=== PATIENT | male | born 1970 | race Caucasian/White ===

== ENCOUNTER 2019-03-18 12:06 | Inpatient (IN) | payer MEDICAID ==
[~2019-03-18] VITALS: Ht 188 cm; Wt 190.5 kg
[~2019-03-18 12:06] MED LIST: ALD25 PO; BAY PO; CAR30 PO; COR6 PO; LASIX40 MG PO; ZES20 PO
[2019-03-18 12:09] VITALS: Ht 188 cm; Wt 190.5 kg
--- NOTE | 2019-03-18 12:18 | NUR ---
EKG IN PROGRESS. CHARGE NURSE IS GETTING ROOM AVAILABLE FOR PT.
--- NOTE | 2019-03-18 12:30 | NUR ---
MSE COMPLETED BY DR PACE. PT HERE FOR C/O INCR SOB IN THE PAST WEEK. PT ALSO STS "I'VE BEEN REALLY BLOATED.. THAT'S BEEN GOING ON IN THE PAST 6 MONTHS. IT'S PROBABLY MAKING ME SHORT OF BREATH." PT REPORTS AN EXTENSIVE HX OF CARDIAC PROBLEMS - AFIB, WI, AND PACEMAKER PLACEMENT. PT HAS PLEASANT AFFECT, CALM, COOPERATIVE. O2 SAT ON ROOM AIR IS 82% PT PLACED ON OXYGEN VIA NC AT THIS TIME
[2019-03-18 12:46] LABS: PLATELET COUNT 139 x10^3mcL (130-400)
[2019-03-18 12:50] LABS: RED CELL DISTRIBUTION WIDTH 17.1 % (11.5-14.5)
--- NOTE | 2019-03-18 13:00 | NUR ---
PT HR DEC TO 98 AT THIS TIME ON CM
[2019-03-18 13:05] LABS: CALCIUM 8.7 mg/dL (8.5-10.1); CARBON DIOXIDE 30.5 mmol/L (21-32); CHLORIDE SERUM 99 mmol/L (98-107); CREATININE SERUM 1.2 mg/dL (0.7-1.3); GFR1 > 60 mL/min; GLUCOSE SERUM 118 mg/dL (74-106); POTASSIUM SERUM 4.5 mmol/L (3.5-5.1); SODIUM SERUM 138 mmol/L (136-145)
[2019-03-18 13:09] LABS: ALBUMIN 3.9 g/dL (3.4-5.0); ALKALINE PHOSPHATASE 100 U/L (46-116); ALT/SGPT 24 U/L (16-63); AST/SGOT 27 U/L (15-37); BILIRUBIN TOTAL 1.2 mg/dL (0.20-1.00); HDL CHOLESTEROL 38 mg/dL (40-60); LIPASE 346 IU/L (73-393); TOTAL PROTEIN, SERUM 8.2 g/dL (6.4-8.2); TRIGLYCERIDES 72 mg/dL (<150)
[2019-03-18 13:11] LABS: CHOLESTEROL 130 mg/dL (<200); CHOLESTEROL/HDL RATIO 3.4
[2019-03-18 13:15] LABS: T3 TOTAL 0.83 ng/mL
[2019-03-18 13:17] LABS: FREE T4 1.97 ng/dL (0.76-1.46); FREE THYROXINE INDEX 3.2 ug/dL (1.4-4.5); T4(THYROXINE) 8.9 ug/dL (4.7-13.3)
[2019-03-18] MEDS ORDERED: ELIQUIS2.5 MG (14:29)
[2019-03-18] MEDS ORDERED: BENAZEPRIL HYDR40 M1 (14:29)
[2019-03-18 14:30] LABS: microscopic required? NO
[2019-03-18] MEDS ORDERED: FUROSEMIDE5 GM (14:30)
[2019-03-18] MEDS ORDERED: PACERONE200 MG (14:30)
--- NOTE | 2019-03-18 14:30 | NUR ---
PT USED URINAL TO BEDSIDE TO PROVIDE URINE SAMPLE
--- NOTE | 2019-03-18 14:42 | NUR ---
REPORT GIVEN TO EL BOBBY
--- NOTE | 2019-03-18 14:57 | NUR ---
REPORT TO ERIC BOBBY.
[2019-03-18 15:09] LABS: urine erythrocyte NEGATIVE (NEGATIVE)
--- NOTE | 2019-03-18 15:28 | NUR ---
PT SITTING ON EDGE OF BED IN POSITION OF COMFORT. PT AWAKE AND ALERT. BREATHING EVEN UNLABORED. NO DISTRESS.
--- NOTE | 2019-03-18 16:10 | NUR ---
RECEIVED PT VIA DS IndustriesERNEY FROM E/D, ACCOMPANIED BY RN AND TRANSPORTER. PT A/A/O X 4, CALM, COOPERATIVE; WEARS GLASSES (W/ PT). AMBULATORY, NO GAIT OR BALANCE IMPAIRMENT NOTED. ON TELE # 28, HR 86, AFIB + VENTRICULAR RHYTHM + PVC'S, DENIES CHEST PAIN OR DISCOMFORT AT THIS TIME; PM BY [facility], INSTALLED 2015. HAYLEY RADIAL AND PEDAL PULSES PRESENT, ANASARCA, CAP REFILL < 3 SECS, SCD BY BEDSIDE. LUNGS DIMINISHED BILATERALLY, CHEST RISING EVENLY, 3LNC, 92%, DESATURATES DOWN TO 85% ON R/A, NO ACUTE RESPIRATORY DISTRESS NOTED. ABD FIRM, DISTENDED, NORMOACTIVE BOWEL SOUNDS X 4 QUADS, LAST BM 03/18/19, FORMED. C/O DARK, CONCENTRATED URINE, W/ FOUL SMELL. IV SITE RFA 20G, CDI. ORIENTED PT TO ROOM, BED CONTROLS, CALL LIGHT SYSTEM. SIDE RAILS UP X 2, BED IN LOW POSITION. WILL ENDORSE TO KANU REYES.
[2019-03-18 17:00] VITALS: BP 126/88
--- NOTE | 2019-03-18 17:07 | NUR ---
ULTRASOUND AT BEDSIDE TO COMPLETE ABD COMPLETE US. ALL NEEDS ATTENDED TO. WILL CONTINUE TO MONITOR
--- NOTE | 2019-03-18 17:30 | NUR ---
DR GABRIEL AWARE PATIENT RHYTHM AFIB WITH VENTRICULAR RHYTHM WELL PATIENT HAS A PACEMAKER WHICH HAS NEVER BEEN INTERROGATED. AWAITING DR GABRIEL TO CONSULT WITH DR ESPAÑA REGARDING PATIENT. WILL PROCEED ORDERED. ALL NEEDS ATTENDED TO. WILL CONTINUE TO MONITOR
--- NOTE | 2019-03-18 18:10 | NUR ---
RECEIVED ORDERS TO INTERROGATE PATIENTS PACEMAKER AT THIS TIME. ULTRASOUND AT BEDSIDE FINISHING UP ABD COMPLETE AND [place] OF BILATERAL LOWER EXTREMITIES. PATIENT REQUESTING TO EAT HIS DINNER BEFORE PACEMAKER BEING INTERROGATED. WILL WAIT UNTIL PATIENT FINISHES HIS DINNER. ALL NEEDS ATTENDED TO. WILL CONTINUE TO MONITOR
--- NOTE | 2019-03-18 19:00 | NUR ---
TRIED TO INTERROGATE PATIENT PACEMAKER AT THIS TIME. PER PATIENT HE GOT HIS PACEMAKER AT [facility]. TRIED TO INTERROGATE WITH [facility] INTERROGATOR. ERROR IN FINDING PACEMAKER. CALLED [facility] INTERROGATOR TECHNICAL SUPPORT AT THIS TIME AND THEY WERE UNABLE TO FIND INFORMATION ON PATIENT. PATIENT THEN PROVIDED PACEMAKER CARD AND REVEALED PACEMAKER IS FROM [facility]. NEED TO CALL [employer] PACEMAKER TO COME AND INTERROGATE PACEMAKER. WILL ENDORSE TO CLINICAL ASSISTANT PROFESSOR NURSE.
--- NOTE | 2019-03-18 19:19 | NUR ---
PATIENT RESTING COMFORTABLY SITTING ON SIDE OF THE BED AT THIS TIME. NO APPARENT DISTRESS OR DISCOMFORT NOTED. 3L NC IN PLACE AND PATIENT TOLERATING WELL. IV PATENT AND INTACT. ALL QUESTIONS AND CONCERNS ADDRESSED. ALL NEEDS ATTENDED TO. SAFETY PRECAUTIONS MAINTAINED. WILL ENDORSE ALL CARE TO BULLET LUBRICANT MIXER NURSE
--- NOTE | 2019-03-18 19:25 | NUR ---
PT SITTING UP AT BEDSIDE TABLE, AOX4, DENIES DIZZINESS, MINIMAL ROSE. PT HAD NITRO PATCH TO LEFT UPPER CHEST, EDUCATED PT IN REGARDS TO S/E OF NITRO, PT REPORTS HE WILL INFORM STAFF IF MEDICATION FOR ROSE IS NEEDED. TELE # 28, A FIB W/ PVC'S, DENIES CP. PT ON ELIQUIS. PULSES PALPABLE BILAT, DENIES NUMBNESS/TINGLING IN FEET. PT REPORTS 3+ PITTING EDEMA BLE, GENERALIZED EDEMA NOTED. PT ON LASIX. EDUCATED PT IN REGARDS TO S/E OF LASIX (LIGHTHEADEDNESS/DIZZINESS UPON STANDING). RESP EVEN AND UNLABORED ON 3LNC, DENIES SOB. ABD ROUND, OBESE PT, DENIES N/V/D. EDUCATED PT IN REGARDS TO DM DIET, EXERCISE. IV SITE TO THE RFA PATENT, SALINE LOCKED AT THIS TIME. ALL COMFORT AND SAFETY MEASURES PROVIDED FOR, CALL LIGHT WITHIN REACH, BED IN LOWEST POSITION, WILL CONTINUE TO MONITOR.
[2019-03-18 20:56] VITALS: BP 111/69
[2019-03-19 01:50] LABS: AMPHETAMINE QUAL UR NONE DETECTED (See below)
[2019-03-19 04:57] VITALS: BP 101/70
--- NOTE | 2019-03-19 04:58 | NUR ---
PT RESTED IN INTERVALS DURING SHIFT, NO ACUTE CHNAGES OCCURRING OVERNIGHT. PT REMAINS ON 3LNC, WILL ATTEMPT TO WEAN OFF. PT BP REMAINS STABLE. PT DENIES CP DURING SHIFT. PT IV SITE REMAINS PATENT RFA. NO REDNESS, SWELLING OR PAIN NOTED. ALL COMFORT AND SAFETY MEASURES PROVIDED FOR, CALL LIGHT WITHIN REACH, BED IN LOWEST POSITION, WILL CONTINUE TO MONITOR.
[2019-03-19 07:08] LABS: BASOPHIL % 1.2 % (0-2); PLATELET COUNT 138 x10^3mcL (130-400)
[2019-03-19 07:20] LABS: CALCIUM 8.6 mg/dL (8.5-10.1); CARBON DIOXIDE 35.5 mmol/L (21-32); CREATININE SERUM 1.4 mg/dL (0.7-1.3); MAGNESIUM 1.9 mg/dL (1.8-2.4); PHOSPHOROUS 5.4 mg/dL (2.5-4.9); POTASSIUM SERUM 4.4 mmol/L (3.5-5.1)
--- NOTE | 2019-03-19 07:25 | NUR ---
RECEIVED PATIENT AWAKE/ALERT IN BED NO DISTRESS NOTED, DENIES PAIN AT THIS TIME. ON O2. TELE #28 AFIB W/ HR 102, IV TO RFA INTACT AND SL NOTED. IDENTITY MANAGEMENT DEVELOPER AT BEDSIDE ASKING PATIENT QUESTIONS REGARD HEALTH HX. CALL LIGHT WITHIN REACH.
--- NOTE | 2019-03-19 09:17 | NUR ---
PATIENT SAT UP AT SIDE OF BED, NO COMPLAIN OF PAIN. STATE FEEL BETTER COMPARE TO YESTERDAY; ALL MEDS ADMINISTERED EXCEPT ELIQUIS WAITING FOR PHARMACY TO BRING IT. NEEDS MET. CALL LIGHT WITHIN REACH.
[2019-03-19 09:42] VITALS: BP 133/84
--- NOTE | 2019-03-19 10:02 | NUR ---
PATIENT SAT UP AT SIDE OF BED, [facility] AT BEDSIDE TO PERFORM DEVICE INTERROGRATE. ELIQUIS PO ADMINISTERED. CONT TO MONITOR.
--- NOTE | 2019-03-19 10:36 | NUR ---
PER SAMUEL KNAPP FROM [facility] REPORT PATIENT HAS CHRONIC AFIB; NO HIGH VENTRICULAR RATE EPISODES NOTED.
--- NOTE | 2019-03-19 11:02 | NUR ---
DR. WHITE SEEN PATIENT AT THIS TIME, PATIENT RESTING IN BED. DISCUSS POC WITH PATIENT. TECH AT BEDSIDE PREPARE TO PERFORM ECHO. CONT CURRENT TX AND CARDIO WORKUP PER DR. WHITE.
--- NOTE | 2019-03-19 12:04 | NUR ---
PATIENT SAT AT SIDE OF THE BED, NO COMPLAIN. METOPROLOL PO GIVEN. HR 88 CONT TO MONITOR.
--- NOTE | 2019-03-19 13:00 | NUR ---
STONE SPREADER OPERATOR CALL INFORM RN PATIENT HAS 33 BEATS RUN PVC, CHECK ON PATIENT SAT AT SIDE OF BED WITH VISITOR, ASYMPTOMATIC. CONT TO MONITOR
[2019-03-19 13:30] VITALS: BP 164/45
--- NOTE | 2019-03-19 15:24 | NUR ---
PATIENT SAT UP AT SIDE OF BED, NO COMPLAIIN. REPORT NO CHEST PAIN. NEEDS MET. CONT TO MONITOR.
[2019-03-19 16:41] VITALS: BP 106/59
--- NOTE | 2019-03-19 16:42 | NUR ---
PATIENT RESTING IN BED DENIES CHEST PAIN, DENIES SOB. BS 99 NO COVERAGE NEEDED. LASIX 40MG PO GIVEN ORDERED. TELE SR W/ PVC HR 76 CONT TO MONITOR.
--- NOTE | 2019-03-19 18:37 | NUR ---
PATIENT RESTING IN BED NO COMPLAINS. NEEDS ANTICIPATED. CALL LIGHT WITHIN REACH.
--- NOTE | 2019-03-19 19:30 | NUR ---
RECEIVED PT FROM DAY SHIFT RN. PT AAOX4. DENIES ROSE/DIZZINESS. BREATHING EVEN AND UNLABORED, PT ON 2L/MIN NC. NO SOB NOTED. TELE #28 AFIB, HR 76. PT HAS PACEMAKER. DENIES CHEST PAIN/PRESSURE. IV RFA PATENT. PT AMBULATORY WITH BRP. PT AWARE ON FLUID RESTRICTIONS. NO SIGNS OF DISTRESS. CALL BUTTON WITHIN REACH. SAFETY PRECAUTIONS IN PLACE. WILL CONTINUE TO MONITOR.
[2019-03-19 21:00] VITALS: BP 106/72
--- NOTE | 2019-03-20 00:38 | NUR ---
PT RESTING. BREATHING EVEN AND UNLABORED. NO SIGNS OF DISTRESS NOTED. CALL BUTTON WITHIN REACH. WILL CONTINUE TO MONITOR.
--- NOTE | 2019-03-20 03:45 | NUR ---
PT AWAKE DENIES ANY PAIN. NO SIGNS OF DISTRESS. CALL BUTTON WITHIN REACH. SAFETY PRECAUTIONS IN PLACE. WILL CONTINUE TO MONITOR.
--- NOTE | 2019-03-20 05:11 | NUR ---
PT SLEPT MOST OF THE NIGHT WITH NO SIGNS OF DISTRESS. BREATHING EVEN AND UNLABORED WITH NO SOB NOTED. NC AT 4L/MIN. RT PROTOCOL. PT AMBULATORY WITH BRP. PT DENIES ANY PAIN. PT MEDICATED PER EMAR. NO SIGNS OF DISTRESS. CALL BUTTON WITHIN REACH. WILL CONTINUE TO MONITOR AND ENDORSE CARE TO DAY SHIFT RN.
[2019-03-20 06:01] VITALS: BP 109/72
--- NOTE | 2019-03-20 06:30 | NUR ---
PT WAS ON NC 2L/MIN LAST NIGHT WITH O2SAT 90%. PLACED PT AT 3L/MIN WTIH O2SAT AT 94%. DR CORNEJO MADE AWARE AND PLACE PT ON RT PROTOCOL. RT EVALUATED PT AND PLACED PT NC 4L/MIN. DR MERAZ MADE AWARE PT RT PROTOCOL WAS CANCELLED THIS AM. AWAITING NEW ORDER.
[2019-03-20 06:58] LABS: BASOPHIL % 0.8 % (0-2); PLATELET COUNT 130 x10^3mcL (130-400)
[2019-03-20 07:09] LABS: CALCIUM 8.4 mg/dL (8.5-10.1); CARBON DIOXIDE 37.8 mmol/L (21-32); CREATININE SERUM 1.5 mg/dL (0.7-1.3); MAGNESIUM 1.9 mg/dL (1.8-2.4); PHOSPHOROUS 5.4 mg/dL (2.5-4.9); POTASSIUM SERUM 4.8 mmol/L (3.5-5.1)
[2019-03-20 07:17] LABS: RED CELL DISTRIBUTION WIDTH 16.8 % (11.5-14.5)
--- NOTE | 2019-03-20 07:43 | NUR ---
PT RESTING. NO SIGNS OF DISTRESS NOTED. ENDORSED CARE TO DAY SHIFT RN, ALL QUESTIONS ADDRESSED.
[2019-03-20 08:11] VITALS: BP 110/74
--- NOTE | 2019-03-20 08:14 | NUR ---
RECEIVED PATIENT FROM KANU ORTEGA. PATIENT SEATED UPRIGHT, EATING BREAKFAST TRAY. NO COMPLAINTS OF SOB OR PAIN. SPOKE WITH PATIENT ABOUT PLAN OF CARE TODAY AND PATIENT AGREES. PATIENT ALSO AWARE AND COMPLIANT WITH FLUID RESTRICTION. WILL AWAIT FOR CARE TEAM TO SPEAK WITH PATIENT ABOUT PLAN. CALL LIGHT IN REACH.
--- NOTE | 2019-03-20 10:40 | NUR ---
DR WHITE AND DR TRUONG IN TO SPEAK WITH PATIENT. STATED PATIENT LIKELY TO BE DISCHARGED TOMORROW ONCE INSURANCE COVERAGE OF PO ELIQUIS APPROVED, WELL WEAN OFF O2. PATIENT VERBALIZES UNDERSTANDING AND AGREES. WILL CONTINUE TO MONITOR O2 SAT. CALL LIGHT IN REACH.
--- NOTE | 2019-03-20 12:06 | NUR ---
PATIENT WEANED TO 2 LPM O2 VIA NC W O2 SATURATION OF 92%. PATIENT CURRENTLY SEATED AT BEDSIDE USING CELL PHONE. DENIES SOB, NO S/S OF RESPIRATORY DISTRESS. ENCOURAGED PATIENT TO AMBULATE AND PATIENT AGREES. WILL CONTINUE TO MONITOR AND WEAN TO ROOM AIR PER DR WHITE & DR TRUONG. CHARGE NURSE JESSICA MADE AWARE. CALL LIGHT IN REACH.
[2019-03-20 12:46] VITALS: BP 102/49
--- NOTE | 2019-03-20 15:50 | NUR ---
PATIENT SEATED AT BEDSIDE. NO COMPLAINTS OF SOB. PATIENT ON ROOM AIR W SAT OF 89-90%. CHARGE NURSE JESSICA MADE AWARE, CALLED DR TRUONG AND MADE AWARE. DR TRUONG ORDERED IS AND 1 LPM IF NEEDED. IS INSTRUCTIONS PRINTED AND GIVEN TO PATIENT. INSTRUCTED ON IS USE AND REPEAT DEMONSTRATION ACHIEVED. CALL LIGHT IN REACH, WILL CONTINUE TO MONITOR.
[2019-03-20 16:56] VITALS: BP 111/58
--- NOTE | 2019-03-20 18:43 | NUR ---
PATIENT SEATED UP TO CHAIR. NO COMPLAINTS OF SOB OR SIGNS OF RESPIRATORY DISTRESS. PATIENT STATES HE IS USING IS. ENCOURAGED AMBULATION, PATIENT STATES HE HAS BEEN UP TO BR BUT NOT OBSERVED IN HALLWAY. WILL ENDORSE TO ONCOMING NURSE. CALL LIGHT IN REACH.
--- NOTE | 2019-03-20 19:10 | NUR ---
RECEIVED PT SITTING UP IN BED WITH HOB ELEVATED AT APPROX 70 DEGREES, NO ACUTE DISTRESS OBSERVED, DENIES PAIN OR DISCOMFORT AT THIS TIME. AFIB TO TELE #28, DENIES CP OR PRESSURE, HR 82, [facility] TRANSVENOUS PACEMAKER IN PLACE TO L UPPER CHEST WALL, INTERROGATED EARLIER TODAY WITH NO DEFICITS NOTED. PULSES PRESENT AND EQUAL THROUGHOUT, NON PITTING EDEMA TO BLE. AA/OX4, ABLE TO MAKE NEEDS KNOWN, SPEECH CLEAR AND APPROPRIATE. BREATHING ON RA, EVEN AND UNLABORED, DENIES SOB OR DYSPNEA, O2 SAT 92% LUNGS DIM B/L. ABD ROUND AND SOFT WITH ACTIVE BOWEL SOUNDS, NO N/V/D. FREELY VOIDS URINE WITH BRP. AMBULATORY AND ABLE TO REPOSITION SELF IN BED. IV TO RFA IN PLACE, DRY, PATENT, INTACT, S/L AT THIS TIME. NO PAIN, REDNESS OR SWELLING WHEN FLUSHED WITH NS. COMFORT AND SAFETY MEASURES IN PLACE. ALL NEEDS ASSESSED AND ATTENDED TO. CALL LIGHT WITHIN REACH. WILL CONTINUE TO MONITOR
--- NOTE | 2019-03-20 19:10 | NUR ---
RECEIVED PT LAYING IN BED, NO ACUTE DISTRESS OBSERVED, DENIES PAIN OR DISCOMFORT AT THIS TIME. AFIB TO TELE #28, DENIES CP OR PRESSURE, HR 82, BIOMETRIC TRANSVENOUS PACEMAKER IN PLACE TO L UPPER CHEST WALL, INTERROGATED EARLIER TODAY WITH NO DEFICITS NOTED. PULSES PRESENT AND EQUAL THROUGHOUT, NON PITTING EDEMA TO BLE. AA/OX4, ABLE TO MAKE NEEDS KNOWN, SPEECH CLEAR AND APPROPRIATE. BREATHING ON RA, EVEN AND UNLABORED, DENIES SOB OR DYSPNEA, O2 SAT 92% LUNGS DIM B/L. ABD ROUND AND SOFT WITH ACTIVE BOWEL SOUNDS, NO N/V/D. FREELY VOIDS URINE WITH BRP. AMBULATORY AND ABLE TO REPOSITION SELF IN BED. IV TO RFA IN PLACE, DRY, PATENT, INTACT, S/L AT THIS TIME. NO PAIN, REDNESS OR SWELLING WHEN FLUSHED WITH NS. COMFORT AND SAFETY MEASURES IN PLACE. ALL NEEDS ASSESSED AND ATTENDED TO. CALL LIGHT WITHIN REACH. WILL CONTINUE TO MONITOR
[2019-03-20 21:13] VITALS: BP 132/76
[2019-03-21 05:58] VITALS: BP 105/67
[2019-03-21 06:50] LABS: CALCIUM 8.9 mg/dL (8.5-10.1); CARBON DIOXIDE 36.2 mmol/L (21-32); CREATININE SERUM 1.6 mg/dL (0.7-1.3); POTASSIUM SERUM 4.6 mmol/L (3.5-5.1)
[2019-03-21 07:23] LABS: PLATELET COUNT 129 x10^3mcL (130-400); RED CELL DISTRIBUTION WIDTH 17.1 % (11.5-14.5)
--- NOTE | 2019-03-21 07:30 | NUR ---
RECEIVED PT SITTING UP ON A CHAIR. NO ACUTE DISTRESS. AAOX4. BREATHING EVEN AND UNLABORED ON RA. IV TO RFA, NO REDNESS OR SWELLING. DENIES CP OR PRESSURE. GIVEN ICE CHIPS REQUESTED. CALL LIGHT WITHIN REACH. WILL CONTINUE TO MONITOR.
[2019-03-21 07:49] VITALS: BP 115/78
--- NOTE | 2019-03-21 08:54 | NUR ---
RESPIRATORY-RECEIVED ORDER TO AMBULATE PT, WENT INTO PT ROOM, ASKED PT TO STAND AND PT WAS 80% ON ROOM AIR. RT DID NOT FEEL COMFORTABLE WALKING PT DUE TO LOW O2 LEVELS. PT PLACED ON 2LPM NASAL CANNULA-91%, RN AWARE, PT IS RESTING COMFORTABLY AFTER RT LEFT ROOM.
[2019-03-21] MEDS ORDERED: ELIQUIS5 M1 PO (09:32)
--- NOTE | 2019-03-21 10:11 | NUR ---
PT'S O2 SAT AT REST=92%. AMBULATED WITH PT IN THE HALLWAYS, O2 SAT DECREASED TO 82%. PT IMMEDIATELY PLACED ON 2L O2 VIA NC. O2 SAT INCREASED TO 93%. PT NOW BACK IN HIS ROOM SITTING UP ON THE SIDE OF THE BED. REPORTED FEELING SOB WHEN AMBULATING. ALAINA SAM AWARE. WILL CONTINUE TO MONITOR.
--- NOTE | 2019-03-21 12:16 | NUR ---
PT RESTING IN BED WATCHING TV. NO ACUTE DISTRESS. RESP EVEN AND UNLABORED ON 2L O2 VIA NC AT REST. HOB ELEVATED. IV TO RFA, NO REDNESS OR SWELLING NOTED. CALL LIGHT WITHIN REACH. WILL CONTINUE TO MONITOR.
[2019-03-21 12:39] VITALS: BP 106/50
--- NOTE | 2019-03-21 13:50 | NUR ---
CALLED AND SPOKE TO COSMO(N.P.) & MADE HER AWARE OF (SOCIAL MEDIA CONTENT SPECIALIST) NOTE. NEW ORDER RECEIVED ABG. MICHELE BOBBY ASSIGNED TO THIS PT MADE AWARE OF ABOVE.
[2019-03-21 16:13] VITALS: BP 98/67
--- NOTE | 2019-03-21 16:26 | NUR ---
PT GIVEN TOWELS AND NEW GOWN REQUESTED. NEW BLANKET ALSO GIVEN. PT SHOWERING AT THIS TIME. NO ACUTE DISTRESS. WILL CONTINUE TO MONITOR.
--- NOTE | 2019-03-21 16:38 | NUR ---
CALLED AND SPOKE TO (LEATHER POLISHER) AND MADE HIM AWARE OF ABG RESULT, NO NEW ORDERS RECEIVED AND JUST SAYS TO CONTINUE PT OXYGEN AT 2L/NC AND HE ALSO SAID THAT NO NEED FOR BIPAP AT THIS TIME. COSMO(N.P.) MADE AWARE OF ABOVE. MICHELE BOBBY ASSIGNED TO THIS PT MADE AWARE OF ABOVE. WILL CONT TO MONITOR.
--- NOTE | 2019-03-21 18:29 | NUR ---
PT RESTING IN BED WATCHING TV. NO ACUTE DISTRESS. AAOX4. RESP EVEN AND UNLABORED ON 2L O2 VIA NC. HOB ELEVATED. IV TO RFA, NO REDNESS OR SWELLING TO IV SITE. BED IN LOW POSITION, CALL LIGHT WITHIN REACH. WILL ENDORSE TO ONCOMING SHIFT.
--- NOTE | 2019-03-21 19:32 | NUR ---
AWAKE AND ALERT, ORIENTED TO NAME, PLACE, TIME AND SITUATION. HOB ELEVATED 50 DEG. BREATHING EVEN AND UNLABORED ON 2LPM OF O2 VIA NC. PER REPORT FROM DAY SHIFT NURSE, DESATS WHEN OFF OXYGEN AND AMBULATED. ABLE TO COMPLETE SENTENCES WITHOUT DIFFICULTY AT THIS TIME. AFIB ON TELE. NO PACING NOTED AT THIS TIME. DENIES HAVING PAIN. SALINE LOCK TO RIGHT FOREARM, FREE FROM ERYTHEMA OR SWELLING. NOTED EDEMA TO BLE, ELEVATED ON PILLOWS. CALL LIGHT WITHIN EASY REACH.
[2019-03-21 20:22] VITALS: BP 106/55
--- NOTE | 2019-03-21 20:26 | NUR ---
WATCHING TV AT THIS TIME. FEET ELEVATED ON PILLOW.
--- NOTE | 2019-03-21 21:22 | NUR ---
EYES CLOSED, HOB KEPT ELEVATED 45 DEG. ON 2LPM OF O2 VIA NC. BREATHING UNLABORED. CALL LIGHT WITHIN EASY REACH.
--- NOTE | 2019-03-22 00:02 | NUR ---
EYES CLOSED, BREATHING EVEN AND UNLABORED ON 2LPM OF O2 VIA NC. HOB KEPT ELEVATED 45 DEG. CALL LIGHT WITHIN EASY REACH.
--- NOTE | 2019-03-22 02:13 | NUR ---
SITTING ON SIDE OF BED. BREATHING UNLABORED. ON 2LPM OF O2 VIA NC.
[2019-03-22 05:35] VITALS: BP 109/64
[2019-03-22 06:06] LABS: BASOPHIL % 1.4 % (0-2)
--- NOTE | 2019-03-22 06:08 | NUR ---
AWAKE AND ALERT, SITTING ON SIDE OF BED. ON 2LPM OF O2 VIA NC. BREATHING EVEN AND UNLABORED. AMBULATED TO RESTROOM.
[2019-03-22 06:20] LABS: PLATELET COUNT 121 x10^3mcL (130-400); RED CELL DISTRIBUTION WIDTH 16.8 % (11.5-14.5)
[2019-03-22 06:24] LABS: CALCIUM 8.5 mg/dL (8.5-10.1); CARBON DIOXIDE 35.2 mmol/L (21-32); CREATININE SERUM 1.5 mg/dL (0.7-1.3)
--- NOTE | 2019-03-22 07:14 | NUR ---
AWAKE AND ALERT, BREATHING EVEN AND UNLABORED ON 2LPM OF O2 VIA NC. SITTING ON BED. ENDORSED TO NURSE HAN
--- NOTE | 2019-03-22 08:00 | NUR ---
SHIFT ASSESSMENT DONE. PATIENT A/A/OX4; CLEAR SPEECH. PACE MAKER TO L UPPER CHEST WALL. INTEROGATTED ON 03/19. TELE#28; A FIB W/ PVC'S; HR = 70'S. DENIED CHEST PAIN NOW. SITTING ON SIDE OF BED. NO SOB ON 2L VIA N/C; O2 SAT 95%. BREATHING SOUND CLEAR HAYLEY, BUT DIMINISHED HAYLEY BASES. HAYLEY LEGS EDEMA 2+, WITH BROWN DISCOLORATION. PULSES PALPABLE. IVHL'D TO RFA. HUGH REYES. [facility] DIET BREAKFSAT. CALL LIGHT IN REACH.
[2019-03-22 08:47] VITALS: BP 109/65
[2019-03-22 13:43] VITALS: BP 95/52
[2019-03-22 14:30] VITALS: BP 95/52
[2019-03-22 17:36] VITALS: BP 103/72
--- NOTE | 2019-03-22 18:26 | NUR ---
CONDITION STABLE. O2 SAT 93% ON ON 2L VIA N/C. VOID LARGE AMOUNT URINE VIA BRP X3, AFTER LASIX GIVEN. HAD BM X1. ENDORSED CARE TO NOC NURSE.
--- NOTE | 2019-03-22 19:55 | NUR ---
PT RECIEVED AAO REG RESP NO SOB ON 2L,CLEAR IN ALL [place],PT SITTING UP ON THE BED,KEPT CLEAN AND DRY TO TOUCH,NADE COMFORTABLE IN BED AND WILL CONTINUE TO MONITOR,CALL LIGHT EASY REACHED AND WILL CONTINUE TO MONITOR.
[2019-03-22 20:53] VITALS: BP 97/68
--- NOTE | 2019-03-23 02:14 | NUR ---
PT RESTING AT THIS TIME,WILL CONTINUE TO MONITOR.
[2019-03-23 05:36] VITALS: BP 99/61
--- NOTE | 2019-03-23 06:35 | NUR ---
PT HAD A RESTING NIGHT NO CHANGE AT THIS TIME,KEPT CLEAN AND DRY TO TOUCH AND WILL CONTINUE TO MONITOR.
--- NOTE | 2019-03-23 07:32 | NUR ---
RECIEVED PT SITTING UP IN CHAIR WITH NO C/O PAIN, DISTRESS, OR SOB. A/O X4, WITH NO ROSE OR DIZZINESS. 2LPM O2 NC CONNECTED TO PT. SALINE LOCK TO RFA INTACT AND PATENT WITH NO REDNESS. SAFETY PRECAUTIONS IN PLACE, CALL LIGHT WITHIN REACH, WILL MONITOR.
[2019-03-23 09:00] VITALS: BP 101/59
--- NOTE | 2019-03-23 10:41 | NUR ---
PT STABLE AT THIS TIME WITH NO C/O PAIN, DISTRESS, OR SOB. SAFETY PRECAUTIONS IN PLACE, CALL LIGHT WITHIN REACH, WILL MONITOR.
--- NOTE | 2019-03-23 11:07 | NUR ---
1. Recommend continuing CCHO, cardiac diet. 2. Diabetes diet education provided.
--- NOTE | 2019-03-23 11:07 | NUR ---
Initial Nutrition Assessment: 222T/B ALEXANDER SALAZAR MR Dx: A fib w/ rapid ventricular response PMHx: hypertension, paroxysmal AFib, MO, CHF, cardiac arrest, s/p pacemaker 4 years ago PSHx: pacemaker Labs: BUN 29H, CREAT 1.5H, (03/18) A1C 6.3H Meds: Colace, D 50%, humulin, Lasix, zofran Diet: CCHO, cardiac PO Intake: (03/22) lunch, breakfast 100%, (03/21) lunch, breakfast 100%, (03/20) 100% all meals Ht: 187.96 cm (74") Wt: 190.5 kg (419#) BMI: 53.9 kg/m2 (morbid obesity) Bed scale: 419# IBW: 190# (86 kg) %IBW: 220 UBW: 345# (1.5 years ago) Age: 48/M Food Allergies: NKFA Skin: intact Parish: 21 Edema: +2 BLE GI: Last BM: 03/22 Per H&P, Pt is a 48-year-old male with a history of hypertension, paroxysmal AFib, MO, CHF on Amiodarone, cardiac arrest, s/p pacemaker presenting with gradual onset of worsening shortness of breath in the last one week. RDN Visit (03/23): Patient was alert and oriented and said that he ate all of his breakfast this morning. Patient was given Diabetic diet education and tips for weight loss. Patient said that he has been gaining weight also due to fluid retention 2/2 CHF. Patient is to be D/C today, per bed huddles. Problem with: N/V/D/C: nuld constipation, on stool softeners Problems with: Chewing/Swallowing: none Current appetite: good Recent wt change: no recent change, gradual weight gain over 1.5 years %wt change: n/a Vitamin/Supplement use: none Special diet at home: regular Physical activity: walking Nutrition education given: Diabetes diet education was provided using [facility] handout on 'Type 2 Diabetes Nutrition Therapy'. Concepts like avoiding sugary drinks, and portion control were discussed. Patient verbalized understanding and did not have any questions at this time. Food-drug interactions: Colace- high fiber w/0482-3625 ml fluids Education given: yes Estimated Nutritional Needs Based on ideal body weight 86 kg Energy: 5716-5734 kcal/d (25-30 kcal/kg) Protein: 86-103 g/d (1.0-1.2 g/kg) - preserve LBM Fluid: per doctor Nutrition Diagnosis 1. Morbid obesity related to increased energy intake as evidenced by BMI 53.9 kg/m2. 2. Limited food adherence related to food and nutrition related knowledge deficit as evidenced by patient not following diabetic, low calorie diet. Intervention 1. Recommend continuing CCHO, cardiac diet. 2. Diabetes diet education provided. Monitor/Evaluate Goal: PO intake at least 75% of estimated needs Monitor: PO intake, Labs, GI function F/U in 7 days as low risk 03/30
[2019-03-23] MEDS ORDERED: CARVEDILOL12.5 M1 PO (12:15)
[2019-03-23 13:58] VITALS: BP 116/75
--- NOTE | 2019-03-23 14:21 | NUR ---
PT SITTING UP IN BED WITH NO C/O PAIN, DISTRESS, OR SOB. DISCHARGEE ORDER IN, JUST WAITING FOR APRIA TO BRING PT OXYGEN. SAFETY PRECAUTIONS IN PLACE, CALL LIGHT WITHIN REACH, WILL MONITOR.
[2019-03-23 14:51] VITALS: BP 116/75
--- NOTE | 2019-03-23 15:51 | NUR ---
PT STABLE TO DISCHARGE PER MD ORDER. VS WNL, NO DISTRESS OR PAIN NOTED. TOLERATED ALL CARES WELL. ERIN DROPPED OF OXYGEN AT 1530. ALL DISCHARGE FORMS SIGNED BY PT. ALL DISCHARGE EDUCATION, INSTRUCTIONS, AND PERSCRIPTIONS WERE GIVEN TO PT AND HE VERBALIZES UNDERSTANDING. IV REMOVED WITH CATHETER INTACT, NO REDNESS OR INFLAMMATION NOTED. ID BAND REMOVED FROM PT ARM. PT ESCORTED DOWN TO LOBBY WITH ALL PERSONAL BELONGINGS IN HAND. PT TAKEN VIA WC BY CANOE INSPECTOR FINAL AND WITH FRIEND AT SIDE.
--- NOTE | 2019-03-23 16:58 | NUR ---
PT CALLED IN STATING THAT HE DID NOT GET A PERSCRIOTION FOR LASIX, NOTIFIED FLACO SHEPPARD AND SHE STATED THAT SHE WOULD CALL LASIX 40MG BID INTO HIS [facility] IN [place]. NOTIFIED PT AND HE VERBALIZED UNDERSTANDING.
== END 2019-03-23 15:49 | disposition home or self-care (01) | DRG 201 ==
LOC: ED 12:06 → DU 14:24
PROVIDERS: Specialist; ADMIT General Practice
DX: I48.0 Paroxysmal atrial fibrillation (principal); I50.23 Acute on chronic systolic (congestive) heart failure; I42.9 Cardiomyopathy, unspecified; Z86.74 Personal history of sudden cardiac arrest; E66.01 Morbid (severe) obesity due to excess calories; Z68.43 Body mass index [BMI] 50.0-59.9, adult; I11.0 Hypertensive heart disease with heart failure; E05.80 Other thyrotoxicosis without thyrotoxic crisis or storm; R73.03 Prediabetes; I25.2 Old myocardial infarction; Z79.82 Long term (current) use of aspirin; Z87.891 Personal history of nicotine dependence; Z79.01 Long term (current) use of anticoagulants; Z95.810 Presence of automatic (implantable) cardiac defibrillator; T46.2X5A Adverse effect of other antidysrhythmic drugs, initial encounter; Y92.018 Other place in single-family (private) house as the place of occurrence of the external cause
CPT/HCPCS: 36600; 82962; 83880; 84439; G0378; J1940; J3490; Q0092

== ENCOUNTER 2019-11-26 08:40 | Inpatient (IN) | payer OTHER, SELFPAY ==
[2019-11-26] VITALS (10 sets, daily range): BP systolic 91–151; BP diastolic 63–103
[~2019-11-26] VITALS: Ht 188 cm; Wt 174.0 kg
[~2019-11-26 08:40] MED LIST changes: +BENAZEPRIL HYDR40 M1; +CARVEDILOL12.5 M1 PO; +ELIQUIS2.5 MG; +ELIQUIS5 M1 PO; +FUROSEMIDE5 GM; +PACERONE200 MG
[2019-11-26 09:40] LABS: ALBUMIN 3.5 g/dL (3.4-5.0); BILIRUBIN TOTAL 1.97 mg/dL (0.20-1.00); C REACTIVE PROTEIN 2.5 mg/dL (<=0.9); CALCIUM 9.1 mg/dL (8.5-10.1); CARBON DIOXIDE 38.8 mmol/L (21-32); CREATININE SERUM 1.9 mg/dL (0.7-1.3); POTASSIUM SERUM 5.4 mmol/L (3.5-5.1); TOTAL PROTEIN, SERUM 7.8 g/dL (6.4-8.2)
[2019-11-26 10:21] LABS: BASOPHIL % 0.7 % (0-2); PLATELET COUNT 153 x10^3mcL (130-400)
[2019-11-26 10:23] LABS: RED CELL DISTRIBUTION WIDTH 18.3 % (11.5-14.5)
[2019-11-26 11:36] LABS: microscopic required? YES; urine erythrocyte TRACE (NEGATIVE)
[2019-11-26 11:56] LABS: CHOLESTEROL/HDL RATIO 3.6
[2019-11-26 12:05] LABS: FREE T4 1.28 ng/dL (0.76-1.46); FREE THYROXINE INDEX 2.2 ug/dL (1.4-4.5); T4(THYROXINE) 6.6 ug/dL (4.7-13.3)
[2019-11-26 12:25] LABS: T3 TOTAL 0.68 ng/mL
[2019-11-26 13:55] LABS: AMPHETAMINE QUAL UR NONE DETECTED (See below)
[2019-11-26 18:32] LABS: CALCIUM 9.1 mg/dL (8.5-10.1); CARBON DIOXIDE 38.2 mmol/L (21-32); CREATININE SERUM 1.8 mg/dL (0.7-1.3); POTASSIUM SERUM 4.8 mmol/L (3.5-5.1)
[2019-11-27] VITALS (19 sets, daily range): BP systolic 95–126; BP diastolic 52–71
[2019-11-27 05:56] LABS: CALCIUM 8.8 mg/dL (8.5-10.1); CARBON DIOXIDE 37.9 mmol/L (21-32); CREATININE SERUM 1.5 mg/dL (0.7-1.3); PHOSPHOROUS 3.3 mg/dL (2.5-4.9); POTASSIUM SERUM 4.5 mmol/L (3.5-5.1)
[2019-11-27 06:12] LABS: BASOPHIL % 1.8 % (0-2); PLATELET COUNT 116 x10^3mcL (130-400)
[2019-11-28] VITALS (17 sets, daily range): BP systolic 97–148; BP diastolic 36–89
[2019-11-28 07:44] LABS: BASOPHIL % 0.6 % (0-2)
[2019-11-28 07:54] LABS: PLATELET COUNT 123 x10^3mcL (130-400)
[2019-11-28 07:55] LABS: BILIRUBIN TOTAL 2.25 mg/dL (0.20-1.00); C REACTIVE PROTEIN 4.8 mg/dL (<=0.9); CALCIUM 8.6 mg/dL (8.5-10.1); CREATININE SERUM 1.6 mg/dL (0.7-1.3); MAGNESIUM 1.8 mg/dL (1.8-2.4); PHOSPHOROUS 3.1 mg/dL (2.5-4.9); TOTAL PROTEIN, SERUM 6.2 g/dL (6.4-8.2)
[2019-11-28 08:17] LABS: ALBUMIN 2.7 g/dL (3.4-5.0)
[2019-11-28 08:18] LABS: CARBON DIOXIDE 40.7 mmol/L (21-32)
[2019-11-29] VITALS (20 sets, daily range): BP systolic 85–137; BP diastolic 39–82
[2019-11-29 06:26] LABS: BASOPHIL % 0.3 % (0-2)
[2019-11-29 06:52] LABS: BILIRUBIN TOTAL 2.7 mg/dL (0.20-1.00); CALCIUM 8.6 mg/dL (8.5-10.1); CARBON DIOXIDE 39.3 mmol/L (21-32); CREATININE SERUM 1.7 mg/dL (0.7-1.3); MAGNESIUM 1.6 mg/dL (1.8-2.4); PHOSPHOROUS 4.1 mg/dL (2.5-4.9); POTASSIUM SERUM 3.9 mmol/L (3.5-5.1)
[2019-11-29 06:57] LABS: ALBUMIN 2.5 g/dL (3.4-5.0); TOTAL PROTEIN, SERUM 6.1 g/dL (6.4-8.2)
[2019-11-29 07:25] LABS: PLATELET COUNT 116 x10^3mcL (130-400); RED CELL DISTRIBUTION WIDTH 18.8 % (11.5-14.5)
[2019-11-30] VITALS (17 sets, daily range): BP systolic 94–119; BP diastolic 41–94
[2019-11-30 06:20] LABS: BASOPHIL % 0.3 % (0-2)
[2019-11-30 06:21] LABS: PLATELET COUNT 106 x10^3mcL (130-400); RED CELL DISTRIBUTION WIDTH 19.7 % (11.5-14.5)
[2019-11-30 06:47] LABS: CALCIUM 8.6 mg/dL (8.5-10.1); CARBON DIOXIDE 39.1 mmol/L (21-32); PHOSPHOROUS 4.4 mg/dL (2.5-4.9); POTASSIUM SERUM 4.1 mmol/L (3.5-5.1)
[2019-12-01] VITALS (17 sets, daily range): BP systolic 101–124; BP diastolic 50–95
[2019-12-01 05:12] LABS: CALCIUM 8.7 mg/dL (8.5-10.1); CREATININE SERUM 2.2 mg/dL (0.7-1.3); MAGNESIUM 2.2 mg/dL (1.8-2.4); PHOSPHOROUS 5.1 mg/dL (2.5-4.9); POTASSIUM SERUM 3.8 mmol/L (3.5-5.1)
[2019-12-01 05:22] LABS: CARBON DIOXIDE 40.5 mmol/L (21-32)
[2019-12-02] VITALS (18 sets, daily range): BP systolic 91–151; BP diastolic 51–77
[2019-12-02 04:27] LABS: BASOPHIL % 0.3 % (0-2)
[2019-12-02 04:28] LABS: PLATELET COUNT 120 x10^3mcL (130-400); RED CELL DISTRIBUTION WIDTH 18.9 % (11.5-14.5)
[2019-12-02 04:48] LABS: CARBON DIOXIDE 39.2 mmol/L (21-32); MAGNESIUM 2.4 mg/dL (1.8-2.4); PHOSPHOROUS 3.7 mg/dL (2.5-4.9); POTASSIUM SERUM 3.3 mmol/L (3.5-5.1)
[2019-12-03] VITALS (18 sets, daily range): BP systolic 94–127; BP diastolic 47–80
[2019-12-03 05:54] LABS: CARBON DIOXIDE 36.5 mmol/L (21-32); CREATININE SERUM 1.6 mg/dL (0.7-1.3); MAGNESIUM 2.5 mg/dL (1.8-2.4); PHOSPHOROUS 3.3 mg/dL (2.5-4.9); POTASSIUM SERUM 3.1 mmol/L (3.5-5.1)
[2019-12-03 06:40] LABS: BASOPHIL % 0.5 % (0-2); PLATELET COUNT 148 x10^3mcL (130-400)
[2019-12-03 06:56] LABS: RED CELL DISTRIBUTION WIDTH 19.3 % (11.5-14.5)
[2019-12-04] VITALS (19 sets, daily range): BP systolic 95–133; BP diastolic 45–82
[2019-12-04 05:54] LABS: CALCIUM 8.7 mg/dL (8.5-10.1); CARBON DIOXIDE 34.9 mmol/L (21-32); CREATININE SERUM 1.8 mg/dL (0.7-1.3); MAGNESIUM 2.6 mg/dL (1.8-2.4); PHOSPHOROUS 4.2 mg/dL (2.5-4.9); POTASSIUM SERUM 3.5 mmol/L (3.5-5.1)
[2019-12-04 06:38] LABS: BASOPHIL % 0.9 % (0-2); PLATELET COUNT 147 x10^3mcL (130-400)
[2019-12-04 06:44] LABS: PATH REVIEW for HEMA NO
[2019-12-05] VITALS (18 sets, daily range): BP systolic 88–117; BP diastolic 45–62
[2019-12-05 05:22] LABS: CALCIUM 8.8 mg/dL (8.5-10.1); CARBON DIOXIDE 37.2 mmol/L (21-32); CREATININE SERUM 1.6 mg/dL (0.7-1.3); MAGNESIUM 2.5 mg/dL (1.8-2.4); POTASSIUM SERUM 3.4 mmol/L (3.5-5.1)
[2019-12-05 06:47] LABS: PLATELET COUNT 181 x10^3mcL (130-400); RED CELL DISTRIBUTION WIDTH 17.5 % (11.5-14.5)
[2019-12-06] VITALS (18 sets, daily range): BP systolic 87–114; BP diastolic 54–65
[2019-12-06 05:01] LABS: BASOPHIL % 0.7 % (0-2); PLATELET COUNT 222 x10^3mcL (130-400)
[2019-12-06 05:09] LABS: RED CELL DISTRIBUTION WIDTH 17.9 % (11.5-14.5)
[2019-12-06 05:13] LABS: CARBON DIOXIDE 36.2 mmol/L (21-32); CREATININE SERUM 1.7 mg/dL (0.7-1.3); MAGNESIUM 2.5 mg/dL (1.8-2.4); PHOSPHOROUS 3.7 mg/dL (2.5-4.9); POTASSIUM SERUM 3.6 mmol/L (3.5-5.1)
[2019-12-07] VITALS (19 sets, daily range): BP systolic 88–116; BP diastolic 52–67
[2019-12-07 06:02] LABS: CALCIUM 9.3 mg/dL (8.5-10.1); CARBON DIOXIDE 36.6 mmol/L (21-32); CHLORIDE SERUM 108 mmol/L (98-107); CREATININE SERUM 1.3 mg/dL (0.7-1.3); GFR1 > 60 mL/min; GLUCOSE SERUM 116 mg/dL (74-106); MAGNESIUM 2.6 mg/dL (1.8-2.4); PHOSPHOROUS 3.8 mg/dL (2.5-4.9); POTASSIUM SERUM 3.5 mmol/L (3.5-5.1); SODIUM SERUM 148 mmol/L (136-145)
[2019-12-07 06:13] LABS: BASOPHIL % 0.3 % (0-2); PLATELET COUNT 191 x10^3mcL (130-400); RED CELL DISTRIBUTION WIDTH 19.4 % (11.5-14.5)
[2019-12-08] VITALS (11 sets, daily range): BP systolic 95–148; BP diastolic 54–82
[2019-12-08 05:08] LABS: BASOPHIL % 0.3 % (0-2); PLATELET COUNT 263 x10^3mcL (130-400)
[2019-12-08 05:09] LABS: CARBON DIOXIDE 35.3 mmol/L (21-32); CHLORIDE SERUM 108 mmol/L (98-107); CREATININE SERUM 1.3 mg/dL (0.7-1.3); GFR1 > 60 mL/min; GLUCOSE SERUM 126 mg/dL (74-106); POTASSIUM SERUM 3.4 mmol/L (3.5-5.1); SODIUM SERUM 148 mmol/L (136-145)
[2019-12-09 03:05] VITALS: BP 148/88
[2019-12-09 05:01] LABS: BASOPHIL % 0.6 % (0-2); PLATELET COUNT 307 x10^3mcL (130-400); RED CELL DISTRIBUTION WIDTH 18.9 % (11.5-14.5)
[2019-12-09 05:06] LABS: CALCIUM 9.3 mg/dL (8.5-10.1); CREATININE SERUM 1.5 mg/dL (0.7-1.3); PHOSPHOROUS 3.8 mg/dL (2.5-4.9); POTASSIUM SERUM 3.5 mmol/L (3.5-5.1)
[2019-12-09 07:30] VITALS: BP 140/82
[2019-12-09 08:05] VITALS: Ht 188 cm; Wt 174.0 kg
[2019-12-09 11:15] VITALS: BP 143/82
[2019-12-09 15:30] VITALS: BP 146/83
[2019-12-09 19:20] VITALS: BP 137/95
[2019-12-09 23:58] VITALS: BP 145/101
[2019-12-10 03:06] VITALS: BP 116/71
[2019-12-10 06:10] LABS: CALCIUM 9.4 mg/dL (8.5-10.1); CARBON DIOXIDE 34.5 mmol/L (21-32); CREATININE SERUM 1.4 mg/dL (0.7-1.3); POTASSIUM SERUM 3.8 mmol/L (3.5-5.1)
[2019-12-10 08:00] VITALS: BP 142/88
[2019-12-10 08:35] LABS: BASOPHIL % 0.3 % (0-2); PLATELET COUNT 311 x10^3mcL (130-400)
[2019-12-10 08:40] LABS: RED CELL DISTRIBUTION WIDTH 19.6 % (11.5-14.5)
[2019-12-10 11:26] VITALS: BP 132/86
[2019-12-10 15:15] VITALS: BP 104/81
[2019-12-10 19:25] VITALS: BP 99/63
[2019-12-10 23:10] VITALS: BP 131/77
[2019-12-11] VITALS (7 sets, daily range): BP systolic 106–141; BP diastolic 73–91
[2019-12-11 04:49] LABS: CALCIUM 8.9 mg/dL (8.5-10.1); CARBON DIOXIDE 32.2 mmol/L (21-32); CREATININE SERUM 1.4 mg/dL (0.7-1.3); POTASSIUM SERUM 3.4 mmol/L (3.5-5.1)
[2019-12-11 05:02] LABS: BASOPHIL % 0.9 % (0-2); PLATELET COUNT 321 x10^3mcL (130-400)
[2019-12-11 05:03] LABS: RED CELL DISTRIBUTION WIDTH 19.3 % (11.5-14.5)
[2019-12-12 03:00] VITALS: BP 142/82
[2019-12-12 06:23] LABS: CARBON DIOXIDE 33.3 mmol/L (21-32); CHLORIDE SERUM 108 mmol/L (98-107); CREATININE SERUM 1.2 mg/dL (0.7-1.3); GFR1 > 60 mL/min; GLUCOSE SERUM 113 mg/dL (74-106); MAGNESIUM 2.1 mg/dL (1.8-2.4); POTASSIUM SERUM 3.5 mmol/L (3.5-5.1); SODIUM SERUM 146 mmol/L (136-145)
[2019-12-12 06:26] LABS: BASOPHIL % 1.1 % (0-2); PLATELET COUNT 354 x10^3mcL (130-400)
[2019-12-12 07:44] VITALS: BP 157/71
[2019-12-12 12:27] VITALS: BP 112/58
[2019-12-12 15:06] VITALS: BP 113/45
[2019-12-12 23:10] VITALS: BP 97/45
[2019-12-13 04:27] VITALS: BP 148/93
[2019-12-13 07:27] LABS: CALCIUM 9.5 mg/dL (8.5-10.1); CARBON DIOXIDE 31.8 mmol/L (21-32); CHLORIDE SERUM 109 mmol/L (98-107); CREATININE SERUM 1.2 mg/dL (0.7-1.3); GFR1 > 60 mL/min; GLUCOSE SERUM 114 mg/dL (74-106); MAGNESIUM 2.3 mg/dL (1.8-2.4); POTASSIUM SERUM 4.1 mmol/L (3.5-5.1); SODIUM SERUM 147 mmol/L (136-145)
[2019-12-13 08:01] LABS: BASOPHIL % 0.6 % (0-2); PLATELET COUNT 334 x10^3mcL (130-400)
[2019-12-13 08:03] LABS: RED CELL DISTRIBUTION WIDTH 20.6 % (11.5-14.5)
[2019-12-13 08:05] LABS: rbc morphology (normal/abnorm) ABNORMAL (NORMAL)
[2019-12-13 08:30] VITALS: BP 166/91
[2019-12-13 13:30] VITALS: BP 141/78
[2019-12-13 17:34] VITALS: BP 129/68
[2019-12-13 19:48] VITALS: BP 133/66
[2019-12-14 05:29] VITALS: BP 127/65
[2019-12-14 06:39] LABS: BASOPHIL % 1.5 % (0-2); PLATELET COUNT 343 x10^3mcL (130-400)
[2019-12-14 06:40] LABS: CALCIUM 8.8 mg/dL (8.5-10.1); CARBON DIOXIDE 33.5 mmol/L (21-32); CHLORIDE SERUM 107 mmol/L (98-107); GFR1 > 60 mL/min; GLUCOSE SERUM 106 mg/dL (74-106); POTASSIUM SERUM 3.6 mmol/L (3.5-5.1); SODIUM SERUM 145 mmol/L (136-145)
[2019-12-14 08:41] LABS: RED CELL DISTRIBUTION WIDTH 20.7 % (11.5-14.5)
[2019-12-14 09:27] LABS: rbc morphology (normal/abnorm) ABNORMAL (NORMAL)
[2019-12-14 15:56] VITALS: BP 120/75
[2019-12-14 22:39] VITALS: BP 156/86
[2019-12-15] VITALS (7 sets, daily range): BP systolic 100–121; BP diastolic 52–74
[2019-12-15 06:33] LABS: BASOPHIL % 1.9 % (0-2); PLATELET COUNT 293 x10^3mcL (130-400)
[2019-12-15 06:41] LABS: RED CELL DISTRIBUTION WIDTH 21.2 % (11.5-14.5)
[2019-12-15 07:34] LABS: CALCIUM 8.8 mg/dL (8.5-10.1); CARBON DIOXIDE 33.2 mmol/L (21-32); CHLORIDE SERUM 105 mmol/L (98-107); CREATININE SERUM 0.9 mg/dL (0.7-1.3); GFR1 > 60 mL/min; GLUCOSE SERUM 96 mg/dL (74-106); MAGNESIUM 1.8 mg/dL (1.8-2.4); PHOSPHOROUS 2.8 mg/dL (2.5-4.9); SODIUM SERUM 145 mmol/L (136-145)
[2019-12-15 09:57] LABS: ovalocyte/elliptocyte 1+
[2019-12-15 11:59] LABS: rbc morphology (normal/abnorm) ABNORMAL (NORMAL)
[2019-12-15] MEDS ORDERED: COR3 PO (17:16)
[2019-12-15] MEDS ORDERED: ZES5 PO (17:16)
[2019-12-15] MEDS ORDERED: ELIQUIS5 MG PO (17:16)
[2019-12-15] MEDS ORDERED: LASIX40 MG PO (17:16)
[2019-12-15] MEDS ORDERED: PEPCID AC20 M2 PO (17:16)
[2019-12-15] MEDS ORDERED: QUETIAPINE FUMA25 M1 PO (17:16)
== END 2019-12-16 00:20 | DRG 130 ==
LOC: ED 08:40 → IC 10:32 → DU 12-13 04:00
PROVIDERS: Emergency Medicine; Family Medicine; Internal Medicine; Internal Medicine Nephrology; Student in an Organized Health Care Education/Training Program; ADMIT Internal Medicine
PROC: 5A1955Z Respiratory Ventilation, Greater than 96 Consecutive Hours (ICD-10-PCS; principal; 2019-11-26)
PROC: 0BH17EZ Insertion of Endotracheal Airway into Trachea, Via Natural or Artificial Opening (ICD-10-PCS; 2019-11-26)
PROC: 02HV33Z Insertion of Infusion Device into Superior Vena Cava, Percutaneous Approach (ICD-10-PCS; 2019-11-29)
PROC: B548ZZA Ultrasonography of Superior Vena Cava, Guidance (ICD-10-PCS; 2019-11-29)
PROC: 5A09357 Assistance with Respiratory Ventilation, Less than 24 Consecutive Hours, Continuous Positive Airway Pressure (ICD-10-PCS; 2019-12-08)
PROC: 5A09357 Assistance with Respiratory Ventilation, Less than 24 Consecutive Hours, Continuous Positive Airway Pressure (ICD-10-PCS; 2019-12-09)
PROC: 5A09357 Assistance with Respiratory Ventilation, Less than 24 Consecutive Hours, Continuous Positive Airway Pressure (ICD-10-PCS; 2019-12-10)
PROC: 5A09357 Assistance with Respiratory Ventilation, Less than 24 Consecutive Hours, Continuous Positive Airway Pressure (ICD-10-PCS; 2019-12-11)
PROC: 5A09357 Assistance with Respiratory Ventilation, Less than 24 Consecutive Hours, Continuous Positive Airway Pressure (ICD-10-PCS; 2019-12-12)
PROC: 5A09357 Assistance with Respiratory Ventilation, Less than 24 Consecutive Hours, Continuous Positive Airway Pressure (ICD-10-PCS; 2019-12-13)
DX: J69.0 Pneumonitis due to inhalation of food and vomit (principal); N17.0 Acute kidney failure with tubular necrosis; I50.23 Acute on chronic systolic (congestive) heart failure; J96.21 Acute and chronic respiratory failure with hypoxia; K83.1 Obstruction of bile duct; D69.6 Thrombocytopenia, unspecified; E66.01 Morbid (severe) obesity due to excess calories; E87.1 Hypo-osmolality and hyponatremia; E87.5 Hyperkalemia; E86.1 Hypovolemia; I48.0 Paroxysmal atrial fibrillation; I42.9 Cardiomyopathy, unspecified; I48.91 Unspecified atrial fibrillation; I25.10 Atherosclerotic heart disease of native coronary artery without angina pectoris; E03.9 Hypothyroidism, unspecified; Z95.810 Presence of automatic (implantable) cardiac defibrillator; I25.2 Old myocardial infarction; Z71.3 Dietary counseling and surveillance; Z68.43 Body mass index [BMI] 50.0-59.9, adult; Z83.3 Family history of diabetes mellitus; Z82.49 Family history of ischemic heart disease and other diseases of the circulatory system; Z80.8 Family history of malignant neoplasm of other organs or systems; Z91.19 Patient's noncompliance with other medical treatment and regimen; I13.0 Hypertensive heart and chronic kidney disease with heart failure and stage 1 through stage 4 chronic kidney disease, or unspecified chronic kidney disease; N18.9 Chronic kidney disease, unspecified; E87.8 Other disorders of electrolyte and fluid balance, not elsewhere classified; Z03.818 Encounter for observation for suspected exposure to other biological agents ruled out; J96.22 Acute and chronic respiratory failure with hypercapnia
CPT/HCPCS: 36600; 83880; 84439; 85378; 87804; 92526-GN; 92610-GN; 97110-GP; 97112-GP; A4628; G0378; G0480; J0456; J0696; J1120; J1160; J1642; J1644; J1815; J1940; J2060; J2250; J2543; J2704; J3010; J3370; J3475; J3480; J3490; J3535; J7030; J7050; P9047; Q0092